=== PATIENT | male | born 2005 | race Caucasian/White ===

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

== ENCOUNTER 2025-09-29 08:42 | Outpatient (CLI) | payer OTHER, SELFPAY | END 2025-09-29 08:43 | disposition home or self-care (01) | LOC: LKVREF 08:44 | PROVIDERS: PCP Family Medicine; Visit Provider Family Medicine | DX: Z01.818 Encounter for other preprocedural examination (principal) | CPT/HCPCS: 80048 ==